=== PATIENT | male | born 1950 | race Caucasian/White ===

== ENCOUNTER 2019-03-12 06:35 | Day surgery (SDC) | payer MEDICARE, OTHER ==
--- NOTE | 2019-03-07 10:33 | HP ---
PREOPERATIVE HISTORY AND PHYSICAL: DATE OF ADMISSION/SURGERY: 03/12/19 - [facility] DATE OF OFFICE VISIT/ENCOUNTER: 02/28/19 ATTENDING SURGEON: Shannan Marcos MD * (DICTATED BY WILLIAM MACEDO) PROCEDURE: Right ring finger trigger release. HISTORY OF PRESENT ILLNESS: This is a 68-year-old male who complains of triggering and locking of his right ring finger. This has been ongoing for a few months. He does not recall any injury. He denies any numbness or tingling. He approximately 12 years ago had an index finger trigger release on the same hand. He is interested in pursuing the same surgical procedure for his right ring finger. PAST MEDICAL HISTORY: 1. Hypercholesterolemia. 2. Asthma. 3. History of sarcoidosis. PAST SURGICAL HISTORY: 1. Bilateral shoulder arthroscopies. 2. Right index finger trigger release. 3. C-spine diskectomy 10 years ago. CURRENT MEDICATIONS: 1. Budesonide 3 mg daily. 2. Dulera 100/5 mcg/ACT 2 puffs twice a day. 3. Lipitor 10 mg daily. 4. Nucala 100 mg/mL. 5. Singulair 10 mg daily. 6. Zyrtec Allergy 10 mg daily. ALLERGIES: CEPHALEXIN causes itching. FAMILY MEDICAL HISTORY: Noncontributory. 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 He is a former smoker, he quit approximately 10 years ago. Prior to that, he smoked less than half a pack a day for several years. He smokes marijuana on occasion and drinks alcohol on occasion. REVIEW OF SYSTEMS: Negative for general, cephalic, cardiovascular, respiratory , GI, , other musculoskeletal, integumentary, endocrine, neurologic, hematologic symptoms. Infectious Disease: Negative for MRSA, hepatitis C, HIV. PHYSICAL EXAMINATION GENERAL: A well-developed, well-nourished 68-year-old male, in no acute distress. VITAL SIGNS: Height 5 feet 4 inches, weight 165 pounds. Pulse rate 80, blood pressure 120/84. HEENT: Normocephalic, atraumatic. Pupils are equal, round, and reactive to light and accommodation. Extraocular movements are intact. Throat is clear. NECK: Supple. No palpable lymph nodes. PULMONARY: Lungs are clear to auscultation bilaterally. No wheezes, rales, or rhonchi. CARDIOVASCULAR: Regular rate and rhythm. S1, S2. No murmurs, rubs, or gallops. No edema. ABDOMEN: Positive bowel sounds. Soft, nontender. NEUROLOGICAL: Alert and oriented x3. Cranial nerves II through XII are intact. Sensation is intact to light touch. MUSCULOSKELETAL: On exam of his right hand, he has a well-healed incision over the A1 zita of the index finger. He has tenderness to palpation at the A1 zita of the ring finger. When he makes a fist, the ring finger locks in flexion. He has full range of motion in the left hand and a tight fist without any catching or locking. Neurovascular function is intact. Skin is intact. IMPRESSION: Right ring finger trigger finger. PLAN: The patient is scheduled to undergo a right ring finger trigger release with Dr. Marcos on 03/12/19. He will return to the office 10 days postop for followup and suture removal. A prescription for Ultracet was e-scribed to the patient's pharmacy for postoperative pain management. WILLIAM MACEDO [id number]/[facility] #: [id number] CHIKA
[~2019-03-12 06:35] MED LIST: Buffered Lidocaine 1% SYRIN* 1 ML/SYRINGE INTRADERM ONE; Dexamethasone IV* 4 MG/ML 1 ML (4 MG) IV SLOW PU ONE; Famotidine IV* 10 MG/ML 2 ML (20 mg) IV ONE; Lactated Ringers 1000 ML Bag* 1,000 ML IV SCH
[2019-03-12] MEDS ORDERED: fentaNYL* 50 MCG/ML 2 ML VIAL (100 MCG VIAL) ONE (07:06)
[2019-03-12] MEDS ORDERED: Midazolam* 1 MG/ML 2 ML VIAL (2 MG) ONE (07:07)
[2019-03-12] MEDS ORDERED: Propofol* 10 MG/ML 20 ML BTL ONE (07:07)
[2019-03-12] MEDS ORDERED: Lidocaine 2% PF * 5 ML VIAL ONE (07:07)
[2019-03-12] MEDS ORDERED: oxyCODONE/Acetamin 5/325 MG* TAB PO PRN (07:12)
[2019-03-12] MEDS ORDERED: fentaNYL* 50 MCG/ML 2 ML VIAL (100 MCG VIAL) IV PRN (07:12)
[2019-03-12] MEDS ORDERED: HYDROcodone/ACETAMIN 5-325 MG* 1 TAB PO PRN (07:12)
[2019-03-12] MEDS ORDERED: Naloxone* 0.4 MG/ML 1 ML VIAL IV PRN (07:12)
[2019-03-12] MEDS ORDERED: Ketorolac INJ* 30 MG/ML 1 ML VIAL IV PRN (07:12)
[2019-03-12] MEDS ORDERED: DiMENhydriNATE IV* 50 MG/ML VIAL IV PUSH PRN (07:12)
[2019-03-12] MEDS ORDERED: Lidocaine 1% INJ* 10 MG/ML 30 ML SDV ONE (07:22)
[2019-03-12] MEDS ORDERED: Ondansetron INJ* 2 MG/ML VIAL ONE (07:38)
[2019-03-12 08:10] VITALS: BP 117/77
--- NOTE | 2019-03-12 18:05 | OP ---
DATE OF OPERATION: 03/12/19 [facility] DATE OF : 54 SURGEON: Shannan Marcos MD INSTRUMENT FITTER: WILLIAM Barnes. ANESTHESIA: Local MAC. PRE-OP DIAGNOSIS: Right ring finger trigger finger. POST-OP DIAGNOSIS: Right ring finger trigger finger. OPERATIVE PROCEDURE: Right ring finger trigger release. ESTIMATED BLOOD LOSS: Zero. TOURNIQUET TIME: About 10 minutes. INDICATIONS FOR PROCEDURE: Esdras is a 68-year-old man who has triggering and locking of his right ring finger. He presents for ring finger trigger release on the right side. DESCRIPTION OF PROCEDURE: The patient was brought to the operating room, was given a sedation anesthetic and a local infiltration of 10 cc of 1% plain lidocaine in the palm of his right hand. Skin of his right hand and forearm was prepped and draped in usual sterile fashion. The hand and forearm were exsanguinated and the tourniquet was elevated to 250 mmHg. A transverse incision was made centered over the A1 zita of the right ring finger. We dissected through the subcutaneous tissue down to the A1 zita. The digital neurovascular bundles were retracted by the surgical technician, Selena Gonzalez. The A1 zita was incised longitudinally completely releasing the flexor tendons, which were in good condition. The wound was irrigated and the skin edges were reapproximated with 4-0 nylon suture. The wound was dressed with Xeroform, 4x4, Webril, and an Elia wrap. The patient tolerated the procedure well and was brought to the recovery room in good condition. [id number]/[facility] #: [id number] MTDD
== END 2019-03-12 08:40 | disposition home or self-care (01) ==
LOC: OREAST 06:35
PROVIDERS: ATTEND Orthopaedic Surgery
DX: M65.341 Trigger finger, right ring finger (principal); E78.00 Pure hypercholesterolemia, unspecified; J45.909 Unspecified asthma, uncomplicated; Z87.891 Personal history of nicotine dependence
CPT/HCPCS: J2250; J2405; J2704; J3010

== ENCOUNTER 2019-09-10 06:37 | Day surgery (SDC) | payer MEDICARE, OTHER ==
--- NOTE | 2019-08-29 09:59 | HP ---
Amended report to enter cosigning physician. PREOPERATIVE HISTORY AND PHYSICAL: DATE OF ADMISSION/SURGERY: 09/10/19 DATE OF OFFICE VISIT/ENCOUNTER: 08/28/19 ATTENDING SURGEON: Shannan Taylor MD* PROCEDURE: Trigger releases, left long and small fingers. HISTORY OF PRESENT ILLNESS: This is a 69-year-old male who complains of triggering and locking of his left long and small fingers, ongoing for several months. He does not recall any injury. He denies any associated numbness or tingling. He has had trigger releases performed on this hand as well as the other hand and he is interested in pursuing the same surgical procedure for his left long and small fingers. PAST MEDICAL HISTORY: 1. Hypercholesterolemia. 2. Asthma. 3. History of sarcoidosis. PAST SURGICAL HISTORY: 1. Right ring finger trigger release. 2. Bilateral shoulder arthroscopies. 3. Right index finger trigger release. 4. C-spine diskectomy 10 years ago. CURRENT MEDICATIONS: 1. Albuterol sulfate 1 unit via nebulizer q.4 hours p.r.n. 2. CoQ10 maximum strength 400 mg daily. 3. Cranberry 200 mg daily. 4. Dulera 2 puffs twice a day. 5. Flonase Allergy Relief 2 sprays per nostril once daily. 6. Lipitor 10 mg daily. 7. 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 8. Melatonin 3 mg 2 tabs daily. 9. Multivitamin Men daily. 10. Nucala 100 mg/mL 1 injection monthly. 11. Potassium gluconate 550 mg 1 tab twice a day. 12. Probiotic daily. 13. Saw palmetto 450 mg daily. 14. Singulair 10 mg daily. 15. Voltaren 1% apply 1 to 2 g to affected area 4 times a day p.r.n. 16. Zyrtec Allergy 10 mg daily. ALLERGIES: CEPHALEXIN causes itching. FAMILY MEDICAL HISTORY: Noncontributory. 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 He is a former smoker, he quit approximately 10 years ago. Prior to that, he smoked less than a half a pack a day for several years. He smokes marijuana on occasion and drinks alcohol on occasion. REVIEW OF SYSTEMS: Negative for general, cephalic, cardiovascular, respiratory , GI, , other musculoskeletal, integumentary, endocrine, neurologic, and hematologic symptoms. Infectious Disease: Negative for MRSA, hepatitis C, HIV. PHYSICAL EXAMINATION GENERAL: A well-developed, well-nourished 69-year-old male, in no acute distress. VITAL SIGNS: Height 5 feet 4-1/2 inches, weight 170 pounds. Pulse rate 93, blood pressure 135/81. HEENT: Normocephalic, atraumatic. Pupils are equal, round, and reactive to light and accommodation. Extraocular movements are intact. Throat is clear. NECK: Supple. No palpable lymph nodes. PULMONARY: Lungs are clear to auscultation bilaterally. No wheezes, rales, or rhonchi. CARDIOVASCULAR: Regular rate and rhythm. S1, S2. No murmurs, rubs, or gallops. No edema. ABDOMEN: Positive bowel sounds. Soft, nontender. MUSCULOSKELETAL: On exam of his left hand, he has tenderness to palpation at the A1 zita of the long and small fingers. He has active triggering when he moves his fingers through range of motion. Neurovascular function is intact. NEUROLOGIC: Alert and oriented x3. Cranial nerves II through XII are intact. Sensation is intact to light touch. SKIN: Intact. IMPRESSION: Left long and small finger trigger fingers. PLAN: The patient is scheduled to undergo trigger releases of the left long and small fingers with Dr. Taylor on 09/10/19. He will return to the office 10 days postop for followup and suture removal. A prescription for tramadol will be e- scribed to the patient's pharmacy for postoperative pain management. WILLIAM MACEDO [id number]/[facility] #: [id number] CHIKA
[~2019-09-10 06:37] MED LIST changes: -Dexamethasone IV* 4 MG/ML 1 ML (4 MG) IV SLOW PU ONE; -Famotidine IV* 10 MG/ML 2 ML (20 mg) IV ONE
[2019-09-10] MEDS ORDERED: Lidocaine 1% INJ* 10 MG/ML 30 ML SDV ONE (06:57)
[2019-09-10] MEDS ORDERED: fentaNYL* 50 MCG/ML 2 ML VIAL (100 MCG VIAL) ONE (07:38)
[2019-09-10] MEDS ORDERED: Midazolam* 1 MG/ML 5 ML VIAL (5 MG) ONE (07:38)
[2019-09-10 08:38] VITALS: BP 126/108
--- NOTE | 2019-09-10 11:12 | OP ---
DATE OF OPERATION: 09/10/19 [facility] DATE OF : 54 SURGEON: Shannan Taylor MD. ROAD DESIGN ENGINEER: WILLIAM Barnes. ANESTHESIA: Local MAC. PRE-OP DIAGNOSIS: Trigger fingers, left small and long fingers. POST-OP DIAGNOSIS: Trigger fingers, left small and long fingers. OPERATIVE PROCEDURE: Trigger finger release, left long and small finger. ESTIMATED BLOOD LOSS: Zero. TOURNIQUET TIME: About 10 minutes. INDICATIONS FOR PROCEDURE: Esdras is a 69-year-old male who has triggering and locking of the small and long fingers in his left hand. He presents for trigger releases. DESCRIPTION OF PROCEDURE: The patient was brought to the operating room, was given a sedation anesthetic and a local infiltration of 10 cc of 1% plain lidocaine in the palm of his left hand. Skin of his left hand and forearm was prepped and draped in the usual sterile fashion. The hand and forearm were exsanguinated and the tourniquet elevated to 250 mmHg. A transverse incision was made over the A1 zita of the left long finger and the left small finger. We dissected bluntly through the subcutaneous tissue down to the pulleys. The digital neurovascular bundles were retracted by the registered nurse surgical services Selena Gonzalez. Each zita was incised longitudinally completely releasing the flexor tendons, which were in good condition. The wounds were irrigated and the skin edges reapproximated with 4-0 nylon suture. The wounds were dressed with Xeroform, 4x4, Webril, and Elia wrap. The patient tolerated the procedure well and was brought to the recovery room in good condition. [id number]/[facility] #: [id number] [facility] SHOREAgustina
== END 2019-09-10 08:57 | disposition home or self-care (01) ==
LOC: OREAST 06:37
PROVIDERS: ATTEND Orthopaedic Surgery
DX: M65.352 Trigger finger, left little finger (principal); M65.332 Trigger finger, left middle finger; E78.00 Pure hypercholesterolemia, unspecified; J45.909 Unspecified asthma, uncomplicated; Z87.891 Personal history of nicotine dependence; E78.5 Hyperlipidemia, unspecified
CPT/HCPCS: J2250; J3010

== ENCOUNTER 2024-07-09 09:56 | Observation (INO) ==
[~2024-07-09 09:56] MED LIST changes: -Buffered Lidocaine 1% SYRIN* 1 ML/SYRINGE INTRADERM ONE; -Lactated Ringers 1000 ML Bag* 1,000 ML IV SCH; +NS 0.45% 1000 ml BAG 1,000 ML IV SCH; +Naloxone 0.4 mg VIAL 0.4 mg/ml 1 ml VIAL IV PRN
[2024-07-09] MEDS ORDERED: ceFAZolin 2 GM PREMIX 2 GM/50 ML BAG ONE (10:12)
[2024-07-09] MEDS ORDERED: Tranexamic Acid 1 GM/100ML BAG 2,000 MG/200 ML BAG IV ONE (10:14)
[2024-07-09 10:41] LABS: Rapid COVID-19 Molecular Undetected (Undetected)
[2024-07-09] MEDS ORDERED: Midazolam 5 mg/5 ml VIAL 1 mg/ml 5 ml VIAL (5 mg) ONE (12:27)
[2024-07-09] MEDS ORDERED: ROPIVACAINE 5 MG/ML 30 ML BTL (0.5%) ONE (12:29)
[2024-07-09] MEDS ORDERED: Phenylephrine IV 10 MG/ML 1 ml VIAL ONE (13:00)
[2024-07-09] MEDS ORDERED: Calcium Carb (TUMS) 500 mg CHEW TAB PO PRN (13:56)
[2024-07-09] MEDS ORDERED: Ondansetron 4 mg VIAL 2 MG/ML 2 ml VIAL IV PRN (13:56)
[2024-07-09] MEDS ORDERED: Lactulose 30 ml UDC PO PRN (13:56)
[2024-07-09] MEDS ORDERED: Morphine 2 MG/ML SYRINGE IV PRN (13:56)
[2024-07-09] MEDS ORDERED: Ondansetron ODT 4 mg TAB 4 MG TAB PO PRN (13:56)
[2024-07-09] MEDS ORDERED: Magnesium Hydroxide LIQ 30 ML UDC PO PRN (13:56)
[2024-07-09] MEDS ORDERED: fentaNYL 100 mcg/2 ml 50 MCG/ML VIAL ONE (16:40)
[2024-07-09] MEDS: fentaNYL 100 mcg/2 ml 50 MCG/ML VIAL IV PRN (16:42)
[2024-07-09] MEDS ORDERED: Ondansetron 4 mg VIAL 2 MG/ML 2 ml VIAL ONE (16:58)
[2024-07-09] MEDS: Ondansetron 4 mg VIAL 2 MG/ML 2 ml VIAL IV PRN (16:59)
[2024-07-09] MEDS: Buffered Lidocaine 1% SYRIN 1 ml INTRADERM ONE (17:56)
[2024-07-09] MEDS: Acetaminophen IV 1 GM/100ML 1,000 MG/100 ML BAG IV ONE (17:56)
[2024-07-09] MEDS: Lactated Ringers 1000 ml BAG 1,000 ML IV SCH ×2 (17:57→18:18)
[2024-07-09] MEDS: ceFAZolin 2 GM PREMIX 2 GM/50 ML BAG IV SCH ×2 (19:25→22:10)
[2024-07-09] MEDS: Magnesium Hydroxide LIQ 30 ML UDC PO SCH (19:27)
[2024-07-10 06:05] LABS: Hematocrit 36.4 % (38-53); Hemoglobin 12.5 g/dL (13.2-16.3); Platelet Count 255 10^3/uL (150-450)
[2024-07-10 06:55] LABS: Calcium 8.3 mg/dL (8.6-10.3); Creatinine, Serum 0.99 mg/dL (0.67-1.17); Potassium 4.4 mmol/L (3.5-5.0); eGFR CKD-EPI 80.9 (>60)
[2024-07-10] MEDS: Vitamin THERAPEUTIC TAB PO SCH (08:44)
[2024-07-10] MEDS ORDERED: Albuterol HFA INHALER 8 gm MDI INH PRN (10:18)
[2024-07-10] MEDS ORDERED: Albuterol 2.5mg/3 ml (0.083%) NEB.SOLN INH PRN (10:20)
[2024-07-10] MEDS: Albuterol 2.5mg/3 ml (0.083%) NEB.SOLN INH ONE (11:27)
[2024-07-10] MEDS: Iohexol 350 (CONTRAST) 500 ML MDV IV ONE (12:21)
[2024-07-10 15:14] VITALS: BP 122/79
[2024-07-10] MEDS ORDERED: Mometasone/Formoter 100/5 MDI INH SCH (19:00)
== END 2024-07-10 15:41 | disposition home or self-care (01) ==
LOC: SSU 09:56 → OR 09:56
PROVIDERS: ADMIT Orthopaedic Surgery Adult Reconstructive Orthopaedic Surgery; ATTEND Orthopaedic Surgery Adult Reconstructive Orthopaedic Surgery